=== PATIENT | female | born 1975 | race Caucasian/White ===

== ENCOUNTER 2017-04-21 17:59 | Emergency (ER) | payer OTHER ==
[~2017-04-21] VITALS: Ht 162.6 cm; Wt 90.7 kg
[~2017-04-21 17:59] MED LIST: ACYCLOVIR 400400 MG PO; AMOXICILLIN 50500 MG PO; AUGMENTIN 500-1 EACH PO; BACTRIM DS TAB1 EACH PO; CIPROFLOXIN HC2.5 M1 OPHTHALMIC; CLEOCIN HCL300 MG PO; DOXYCYCLINE 10100 MG PO; KEFLEX500 MG PO; LIDOCAINE VISC100 M1 TOP; METROGEL-VAGINA70 GM VG; NEXIUM40 MG; NEXIUM40 MG PO; NORCO 5-325 TA1 EACH PO; OXYCODON-ACETA1 EAC1 PO; PHENERGAN 25 MG25 MG PO; PROZAC PO; ROBAXIN500 MG PO; TRAMADOL 50 MG50 MG PO; VICODIN 5-5001 EACH PO; XANAX PO; ZOFRAN ODT4 MG PO; ZOFRAN4 MG PO
[2017-04-21 20:43] VITALS: BP 147/89
== END 2017-04-21 20:43 | disposition home or self-care (01) ==
LOC: M.ERS 17:59
DX: I83.92 Asymptomatic varicose veins of left lower extremity (principal); F41.9 Anxiety disorder, unspecified; K21.9 Gastro-esophageal reflux disease without esophagitis

== ENCOUNTER 2017-10-15 19:49 | Emergency (ER) | payer OTHER ==
[~2017-10-15] VITALS: Ht 162.6 cm; Wt 88.5 kg
[2017-10-15] MEDS ORDERED: TRIAMCINOLONE A80 G2 TOP ×2 (20:28→20:30)
[2017-10-15] MEDS ORDERED: MEDROLDOSEPACK PO (20:29)
[2017-10-15 20:42] VITALS: BP 150/81
== END 2017-10-15 20:43 | disposition home or self-care (01) ==
LOC: M.ERS 19:49
DX: L23.7 Allergic contact dermatitis due to plants, except food (principal); F41.9 Anxiety disorder, unspecified; K21.9 Gastro-esophageal reflux disease without esophagitis; E66.01 Morbid (severe) obesity due to excess calories; F17.210 Nicotine dependence, cigarettes, uncomplicated

== ENCOUNTER 2018-03-28 20:27 | Emergency (ER) | payer OTHER ==
[~2018-03-28] VITALS: Ht 162.6 cm; Wt 86.2 kg
[~2018-03-28 20:27] MED LIST changes: +MEDROLDOSEPACK PO; +TRIAMCINOLONE A80 G2 TOP
[2018-03-28 20:39] LABS: URINE BILIRUBIN NEGATIVE (Negative); URINE BLOOD 3+ (Negative); URINE CLARITY CLEAR; URINE COLOR YELLOW; URINE GLUCOSE-RANDOM NEGATIVE (Negative); URINE KETONES NEGATIVE (Negative); URINE NITRITE-REFLEX NEGATIVE (Negative); URINE PROTEIN 1+ (Negative); URINE SPECIFIC GRAVITY <= 1.005 (1.005-1.030); URINE UROBILINOGEN 0.2 E.U./dl (0.2-1.0)
[2018-03-28 20:40] LABS: URINE LEUKOCYTES-REFLEX 2+ (Negative)
[2018-03-28] MEDS ORDERED: MACROBID 100 M100 M1 PO (20:51)
[2018-03-28 21:01] LABS: SQUAMOUS 0-3 Few /LPF (0-3); URINE RBC 0-2 Rare /HPF (0-2); URINE WBC-REFLEX >25 Many /HPF (0-5)
[2018-03-28 21:02] LABS: BACTERIA-REFLEX 1-9 Few /HPF (None Seen); CASTS None Seen /LPF (None Seen); CRYSTALS None Seen /LPF (None Seen)
[2018-03-28 21:10] VITALS: BP 138/79
== END 2018-03-28 21:10 | disposition home or self-care (01) ==
LOC: M.ERS 20:27
PROVIDERS: Nurse Practitioner Family
DX: N39.0 Urinary tract infection, site not specified (principal); F17.200 Nicotine dependence, unspecified, uncomplicated; F41.9 Anxiety disorder, unspecified; K21.9 Gastro-esophageal reflux disease without esophagitis; E66.01 Morbid (severe) obesity due to excess calories; Z68.32 Body mass index [BMI] 32.0-32.9, adult

== ENCOUNTER 2018-08-25 01:17 | Emergency (ER) | payer OTHER ==
[~2018-08-25] VITALS: Ht 162.6 cm; Wt 86.2 kg
[~2018-08-25 01:17] MED LIST changes: +MACROBID 100 M100 M1 PO
[2018-08-25 01:25] VITALS: BP 121/75
[2018-08-25] MEDS ORDERED: PREDNISONE 20 M20 M1 PO (01:33)
[2018-08-25] MEDS ORDERED: KEFLEX500 M1 PO (01:33)
== END 2018-08-25 01:37 | disposition home or self-care (01) ==
LOC: M.ERS 01:17
DX: L24.7 Irritant contact dermatitis due to plants, except food (principal); F41.9 Anxiety disorder, unspecified; K21.9 Gastro-esophageal reflux disease without esophagitis; E66.01 Morbid (severe) obesity due to excess calories; Z68.32 Body mass index [BMI] 32.0-32.9, adult

== ENCOUNTER 2019-03-25 04:35 | Emergency (ER) | payer OTHER ==
[~2019-03-25] VITALS: Ht 162.6 cm; Wt 79.4 kg
[~2019-03-25 04:35] MED LIST changes: +KEFLEX500 M1 PO; +PREDNISONE 20 M20 M1 PO
[2019-03-25 05:34] LABS: INFLUENZA A ANTIGEN Negative (Negative); INFLUENZA B ANTIGEN Negative (Negative)
[2019-03-25] MEDS ORDERED: PREDNISONE50 MG PO (05:54)
[2019-03-25] MEDS ORDERED: PROAIR HFA8.5 GM INH (05:54)
[2019-03-25] MEDS ORDERED: AUGMENTIN 875-1 EACH PO (05:54)
[2019-03-25 06:04] VITALS: BP 130/88
[2019-03-26] MEDS ORDERED: ALBUTEROL2.5 MG/0.5 INH (20:19)
[2019-03-26] MEDS ORDERED: NEBULIZER MISCELL (20:19)
[2019-03-26] MEDS ORDERED: TRAMADOL 50 MG50 MG PO (20:19)
== END 2019-03-25 06:21 | disposition home or self-care (01) ==
LOC: M.ERS 04:35
PROVIDERS: Emergency Medicine
DX: J18.9 Pneumonia, unspecified organism (principal); J40 Bronchitis, not specified as acute or chronic; K21.9 Gastro-esophageal reflux disease without esophagitis; E66.01 Morbid (severe) obesity due to excess calories; Z68.30 Body mass index [BMI] 30.0-30.9, adult

== ENCOUNTER 2019-03-26 17:49 | Emergency (ER) | payer OTHER ==
[~2019-03-26] VITALS: Ht 162.6 cm; Wt 79.4 kg
--- NOTE | ~2019-03-26 | EKG ---
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
[~2019-03-26 17:49] MED LIST changes: +AUGMENTIN 875-1 EACH PO; +PREDNISONE50 MG PO; +PROAIR HFA8.5 GM INH
[2019-03-26 18:50] LABS: ABSOLUTE LYMPHOCYTES 1.3 thou/uL (0.8-5.3); ABSOLUTE NEUTROPHILS 7.9 thou/uL (1.6-8.1); BASOPHILS 0.4 %; EOSINOPHILS 0.2 %; HEMATOCRIT 34.3 % (37.0-47.0); HEMOGLOBIN 11.6 gm/dL (12.0-15.0); LYMPHOCYTES 12.7 %; MCH 28.8 pg (26.0-34.0); MCHC 33.7 g/dL (28.0-37.0); MCV 85.5 fL (80.0-100.0); MONOCYTES 9.6 %; MPV 6.5 fl. (7.2-11.1); NUCLEATED RBCS 0 /100WBC; PLATELET COUNT* 237 thou/uL (150-400); POLYS 77.1 %; RBC 4.01 mil/uL (4.20-5.00); RDW-CV 13.3 % (10.5-14.5); WBC 10.2 thou/uL (4.0-11.0)
[2019-03-26 18:58] LABS: CALCIUM 8.1 mg/dL (8.5-10.1); CREATININE 0.7 mg/dL (0.6-1.3); POTASSIUM 3.8 mmol/L (3.5-5.1)
[2019-03-26 19:02] LABS: ALBUMIN 2.8 g/dL (3.4-5.0); TOTAL BILIRUBIN 0.1 mg/dL (<0.1-1.0); TOTAL PROTEIN 6.7 g/dL (6.4-8.2)
[2019-03-26] MEDS ORDERED: TRAMADOL 50 MG50 MG PO (20:19)
[2019-03-26] MEDS ORDERED: NEBULIZER MISCELL (20:19)
[2019-03-26] MEDS ORDERED: ALBUTEROL2.5 MG/0.5 INH (20:19)
[2019-03-26 20:38] VITALS: BP 137/92
== END 2019-03-26 20:38 | disposition home or self-care (01) ==
LOC: M.ERS 17:49
PROVIDERS: Nurse Practitioner Family
DX: J18.9 Pneumonia, unspecified organism (principal); R07.89 Other chest pain; E66.01 Morbid (severe) obesity due to excess calories; K21.9 Gastro-esophageal reflux disease without esophagitis; F41.9 Anxiety disorder, unspecified; F17.210 Nicotine dependence, cigarettes, uncomplicated; Z68.30 Body mass index [BMI] 30.0-30.9, adult

== ENCOUNTER 2020-09-10 17:56 | Emergency (ER) | payer OTHER ==
[~2020-09-10] VITALS: Ht 162.6 cm; Wt 86.2 kg
[~2020-09-10 17:56] MED LIST changes: +ALBUTEROL2.5 MG/0.5 INH; +NEBULIZER MISCELL
[2020-09-10] MEDS ORDERED: CEPHALEXIN500 MG PO (20:02)
[2020-09-10] MEDS ORDERED: NORCO5 PO (20:02)
[2020-09-10] MEDS ORDERED: BACTRIM DS TAB1 EACH PO (20:02)
[2020-09-10 20:18] VITALS: BP 127/86
== END 2020-09-10 20:19 | disposition home or self-care (01) ==
LOC: M.ERS 17:56
DX: T24.101A Burn of first degree of unspecified site of right lower limb, except ankle and foot, initial encounter (principal); T31.0 Burns involving less than 10% of body surface; L03.115 Cellulitis of right lower limb; K21.9 Gastro-esophageal reflux disease without esophagitis; E66.01 Morbid (severe) obesity due to excess calories; Z68.32 Body mass index [BMI] 32.0-32.9, adult; X16.XXXA Contact with hot heating appliances, radiators and pipes, initial encounter; Y93.89 Activity, other specified; Y92.89 Other specified places as the place of occurrence of the external cause; Y99.8 Other external cause status